=== PATIENT | female | born 1940 | race Caucasian/White ===

== ENCOUNTER → 2021-09-09 | Outpatient (CLI) | payer OTHER | LOC: HYPER 09:48 | PROVIDERS: ATTEND Emergency Medicine | DX: S90.414A Abrasion, right lesser toe(s), initial encounter (principal); L97.512 Non-pressure chronic ulcer of other part of right foot with fat layer exposed; L84 Corns and callosities; R60.0 Localized edema; E03.9 Hypothyroidism, unspecified; I12.9 Hypertensive chronic kidney disease with stage 1 through stage 4 chronic kidney disease, or unspecified chronic kidney disease; N18.9 Chronic kidney disease, unspecified; M81.0 Age-related osteoporosis without current pathological fracture; G47.00 Insomnia, unspecified; E66.9 Obesity, unspecified; K21.9 Gastro-esophageal reflux disease without esophagitis; Z90.49 Acquired absence of other specified parts of digestive tract; Z90.710 Acquired absence of both cervix and uterus; Z68.32 Body mass index [BMI] 32.0-32.9, adult; Z86.73 Personal history of transient ischemic attack (TIA), and cerebral infarction without residual deficits; X58.XXXA Exposure to other specified factors, initial encounter; Y93.89 Activity, other specified; Y92.89 Other specified places as the place of occurrence of the external cause; Y99.8 Other external cause status ==

== ENCOUNTER → 2021-09-24 | Outpatient (CLI) | payer OTHER | LOC: HYPER 13:39 | PROVIDERS: ATTEND Emergency Medicine | DX: L97.512 Non-pressure chronic ulcer of other part of right foot with fat layer exposed (principal); S81.801D Unspecified open wound, right lower leg, subsequent encounter; S90.414D Abrasion, right lesser toe(s), subsequent encounter; R60.0 Localized edema; E03.9 Hypothyroidism, unspecified; K21.9 Gastro-esophageal reflux disease without esophagitis; I12.9 Hypertensive chronic kidney disease with stage 1 through stage 4 chronic kidney disease, or unspecified chronic kidney disease; N18.9 Chronic kidney disease, unspecified; M81.0 Age-related osteoporosis without current pathological fracture; G47.00 Insomnia, unspecified; E66.9 Obesity, unspecified; Z68.32 Body mass index [BMI] 32.0-32.9, adult; Z86.73 Personal history of transient ischemic attack (TIA), and cerebral infarction without residual deficits; Z79.899 Other long term (current) drug therapy; W19.XXXD Unspecified fall, subsequent encounter ==

== ENCOUNTER → 2021-10-01 | Outpatient (CLI) | payer OTHER | LOC: HYPER 14:27 | PROVIDERS: ATTEND Emergency Medicine | DX: S90.121D Contusion of right lesser toe(s) without damage to nail, subsequent encounter (principal); S90.414D Abrasion, right lesser toe(s), subsequent encounter; L97.512 Non-pressure chronic ulcer of other part of right foot with fat layer exposed; L84 Corns and callosities; R60.0 Localized edema; E03.9 Hypothyroidism, unspecified; K21.9 Gastro-esophageal reflux disease without esophagitis; I12.9 Hypertensive chronic kidney disease with stage 1 through stage 4 chronic kidney disease, or unspecified chronic kidney disease; N18.9 Chronic kidney disease, unspecified; M81.0 Age-related osteoporosis without current pathological fracture; G47.00 Insomnia, unspecified; E66.9 Obesity, unspecified; Z68.32 Body mass index [BMI] 32.0-32.9, adult; Z86.73 Personal history of transient ischemic attack (TIA), and cerebral infarction without residual deficits; Z79.899 Other long term (current) drug therapy; W19.XXXD Unspecified fall, subsequent encounter ==

== ENCOUNTER → 2021-10-08 | Outpatient (CLI) | payer OTHER | LOC: HYPER 08:29 → RAD 13:58 | PROVIDERS: ATTEND Emergency Medicine | DX: L97.512 Non-pressure chronic ulcer of other part of right foot with fat layer exposed (principal); S91.104D Unspecified open wound of right lesser toe(s) without damage to nail, subsequent encounter; S90.414D Abrasion, right lesser toe(s), subsequent encounter; R60.0 Localized edema; E03.9 Hypothyroidism, unspecified; K21.9 Gastro-esophageal reflux disease without esophagitis; I12.9 Hypertensive chronic kidney disease with stage 1 through stage 4 chronic kidney disease, or unspecified chronic kidney disease; N18.9 Chronic kidney disease, unspecified; M81.0 Age-related osteoporosis without current pathological fracture; G47.00 Insomnia, unspecified; E66.9 Obesity, unspecified; Z68.32 Body mass index [BMI] 32.0-32.9, adult; Z86.73 Personal history of transient ischemic attack (TIA), and cerebral infarction without residual deficits; Z79.899 Other long term (current) drug therapy; X58.XXXD Exposure to other specified factors, subsequent encounter ==

== ENCOUNTER → 2021-10-24 | Outpatient (CLI) | payer OTHER | LOC: HYPER 08:41 | PROVIDERS: ATTEND Emergency Medicine | DX: L97.512 Non-pressure chronic ulcer of other part of right foot with fat layer exposed (principal); S91.104D Unspecified open wound of right lesser toe(s) without damage to nail, subsequent encounter; S90.414D Abrasion, right lesser toe(s), subsequent encounter; S90.121D Contusion of right lesser toe(s) without damage to nail, subsequent encounter; R60.0 Localized edema; E03.9 Hypothyroidism, unspecified; K21.9 Gastro-esophageal reflux disease without esophagitis; I12.9 Hypertensive chronic kidney disease with stage 1 through stage 4 chronic kidney disease, or unspecified chronic kidney disease; N18.9 Chronic kidney disease, unspecified; M81.0 Age-related osteoporosis without current pathological fracture; G47.00 Insomnia, unspecified; E66.9 Obesity, unspecified; Z68.32 Body mass index [BMI] 32.0-32.9, adult; Z86.73 Personal history of transient ischemic attack (TIA), and cerebral infarction without residual deficits; X58.XXXD Exposure to other specified factors, subsequent encounter ==